=== PATIENT | male | born 1955 | race Two or more races ===

== ENCOUNTER 2023-04-19 23:38 | Emergency (ER) | payer OTHER ==
[~2023-04-19] VITALS: Ht 165.1 cm; Wt 63.6 kg
[2023-04-20] MEDS ORDERED: ONDANSETRON ODT 4 MG TAB PO ONE (02:15)
[2023-04-20] MEDS ORDERED: MORPHINE SULFATE INJ 2 MG/ml SYRG IM ONE (02:15)
[2023-04-20] MEDS ORDERED: CEPH500C PO (02:27)
[2023-04-20] MEDS ORDERED: CLIN300C70 PO (02:27)
[2023-04-20] MEDS ORDERED: KETOROLAC TROMETH 60MG/2ML VIAL IM ONE (02:30)
[2023-04-20] MEDS ORDERED: cefTRIAXone SOD 1,000 MG VL IM ONE (02:30)
[2023-04-20 04:04] VITALS: BP 171/84; PULSE 94; RESP 18; TEMP 98.2; O2SAT 100
== END 2023-04-20 03:28 | disposition home or self-care (01) ==
LOC: ER 23:38 → EDBD 23:38 → ER 04-20 03:28
DX: G89.29 Other chronic pain (principal); M54.50 Low back pain, unspecified; L03.317 Cellulitis of buttock; E11.9 Type 2 diabetes mellitus without complications; E78.5 Hyperlipidemia, unspecified; I10 Essential (primary) hypertension; F15.90 Other stimulant use, unspecified, uncomplicated
CPT/HCPCS: 96372; 99284; J0696; J1885